=== PATIENT | male | born 1975 | race Caucasian/White ===

== ENCOUNTER 2016-06-22 13:20 | Emergency (ER) | payer OTHER ==
[2016-06-22 13:44] VITALS: TEMP 98.1; BMI 25.1
[2016-06-22] MEDS ORDERED: SODIUM CHLORIDE 1,000 ML IV STA (13:46)
--- NOTE | 2016-06-22 13:46 | PDOC ---
History of Present Illness - General History Source: Patient, EMS, Old Records Exam Limitations: No Limitations <Citlaly Leon - Last Filed: 06/22/16 16:43> - General History Source: Patient Exam Limitations: No Limitations - History of Present Illness Initial Comments: 06/22/16 14:00 The patient is a 41-year-old man with a significant past medical history of schizophrenia who presents to the emergency department via EMS for further evaluation of tremors. He state that this morning, he was having increasing generalized tremors,which prompted him to activate EMS. He is compliant with Haldol, [place], Panafen, Oxycarbon and states having a similar episode in the past, for which he was given Ativan and helped with his tremors. He denies the use of any recreational drug use. No other complaints. <Jodee Bansal - Last Filed: 06/22/16 16:48> - General Stated Complaint: CONVULSION Time Seen by Provider: 06/22/16 13:46 Past History - Psycho/Social/Smoking Cessation Hx Suicidal Ideation: No Smoking History: Never smoked Have you smoked in the past 12 months: No Information on smoking cessation initiated: No Drug/Substance Use Hx: No <Citlaly Leon - Last Filed: 06/22/16 16:43> <Jodee Bansal - Last Filed: 06/22/16 16:48> - Past Medical History Allergies/Adverse Reactions: Allergies Allergy/AdvReac Type Severity Reaction Status Date / Time No Known Allergies Allergy Verified 06/22/16 14:14 Home Medications: Ambulatory Orders Diphenhydramine [Benadryl -] 50 mg PO BID 06/22/16 Haloperidol [Haldol -] 20 mg PO BID 06/22/16 [place] Carbonate [Eskalith -] 600 mg PO BID 06/22/16 Lorazepam [Ativan] 2 mg PO DAILY 06/22/16 OXcarbazepine [Trileptal] 600 mg PO BID 06/22/16 Review of Systems - Review of Systems Able to Perform ROS?: Yes Comments:: 06/22/16 14:00 GENERAL/CONSTITUTIONAL: No fever or chills. No weakness. HEAD, EYES, EARS, NOSE AND THROAT: No change in vision. No ear pain or discharge. No sore throat. CARDIOVASCULAR: No chest pain or shortness of breath. RESPIRATORY: No cough, wheezing, or hemoptysis. GASTROINTESTINAL: No nausea, vomiting, diarrhea or constipation. GENITOURINARY: No dysuria, frequency, or change in urination. MUSCULOSKELETAL: No joint or muscle swelling or pain. No neck or back pain. SKIN: No rash NEUROLOGIC: Yes: Generalized body tremors.No headache, vertigo, loss of consciousness, or change in strength/sensation. ENDOCRINE: No increased thirst. No abnormal weight change. HEMATOLOGIC/LYMPHATIC: No anemia, easy bleeding, or history of blood clots. ALLERGIC/IMMUNOLOGIC: No hives or skin allergy. <Jodee Bansal - Last Filed: 06/22/16 16:48> *Physical Exam - Vital Signs Last Vital Signs Temp Pulse Resp BP Pulse Ox 98.1 F 110 H 18 157/96 100 06/22/16 13:25 06/22/16 13:25 06/22/16 13:25 06/22/16 13:25 06/22/16 13:25 <Citlaly Leon - Last Filed: 06/22/16 16:43> - Vital Signs Last Vital Signs Temp Pulse Resp BP Pulse Ox 98.1 F 110 H 18 157/96 100 06/22/16 13:25 06/22/16 13:25 06/22/16 13:25 06/22/16 13:25 06/22/16 13:25 - Physical Exam Comments: 06/22/16 14:00 GENERAL: Awake, alert, and fully oriented. Diaphoretic. HEAD: No signs of trauma EYES: PERRLA, EOMI, sclera anicteric, conjunctiva clear. Gaze fixed and upward. ENT: Auricles normal inspection, hearing grossly normal, nares patent, oropharynx clear without exudates. Moist mucosa NECK: Normal ROM, supple, no lymphadenopathy, JVD, or masses LUNGS: Breath sounds equal, clear to auscultation bilaterally. No wheezes, and no crackles HEART: Regular rate and rhythm, normal S1 and S2, no murmurs, rubs or gallops ABDOMEN: Soft, nontender, normoactive bowel sounds. No guarding, no rebound. No masses EXTREMITIES: Normal range of motion, no edema. No clubbing or cyanosis. No cords, erythema, or tenderness NEUROLOGICAL: Cranial nerves II through XII grossly intact. There is some voluntary shaking of the bilateral upper/lower extremities. Normal speech <Jodee Bansal - Last Filed: 06/22/16 16:48> ED Treatment Course - LABORATORY CBC & Chemistry Diagram: 06/22/16 14:08 06/22/16 14:08 <Andrew Leonfany - Last Filed: 06/22/16 16:43> - LABORATORY CBC & Chemistry Diagram: 06/22/16 14:08 06/22/16 14:08 <Jodee Banasl - Last Filed: 06/22/16 16:48> Medical Decision Making - Medical Decision Making 06/22/16 14:13 41-year-old male with history of schizoaffective disorder on antipsychotic medications presents the emergency Department with complaints of uncontrollable "shaking". The patient says that he was recently in the hospital and was prescribed Haldol was not prescribed any medication to counteract the EPS. The patient received Benadryl 50 mg IV in the ED with complete resolution of his symptoms. Differential diagnosis includes but is not limited to: Dystonia/ dystonic reaction, rhabdo my lysis, dehydration, electrolyte abnormality, toxic/ metabolic derangement. Plan: 1. Labs 2. IV fluids for hydration 3. Observe and reevaluate 4. Will discharge on Benadryl 50 mg every 6 hours for the next several days and will advised to follow-up with his psychiatrist on Thursday. Will also advised to return to the emergency department if symptoms persist, worsen, or new symptoms arise. 06/22/16 16:43 Addendum: The labs were reviewed and were noted in the EMR. His CK was elevated and therefore he was written for 2L IVF. The patient had complete resolution of his Sx with benadryl and then subsequently had times when he appeared to have voluntary shaking of various body parts. the patient continually requested ativan for his symptoms and he was given ativan 1mg IV. He repeatedly requested more ativan and to be "knocked out". When he was told no he asked to leave AMA (see AMA note). <EdwardCitlaly - Last Filed: 06/22/16 16:43> *DC/Admit/Observation/Transfer - Discharge Dispostion Admit: No - Attestations Physician Attestion: 06/22/16 14:15 I, Dr. Citlaly Leon, attest that the scribes documentation that appears above has been prepared under my direction and personally reviewed by me in its entirety. I confirmed that the note above accurately reflects all work, treatment, procedures, and medical decision-making performed by me. <Citlaly Leon - Last Filed: 06/22/16 16:43> - Attestations Scribe Attestion: 06/22/16 14:00 Documentation prepared by Jodee Bansal, acting as ophthalmic medical technician for Citlaly Leon MD. <Jodee Bansal - Last Filed: 06/22/16 16:48> Diagnosis at time of Disposition: Dystonic drug reaction - Discharge Dispostion Disposition: AGAINST MEDICAL ADVICE Condition at time of disposition: Stable
[2016-06-22 14:20] LABS: BASOPHIL 0.9 % (0-2.0); EOSINOPHIL 0.6 % (0-4.5); MCH 30.9 pg (25.7-33.7); MCHC 33.5 g/dl (32.0-35.9); MEAN CELL VOLUME 92.2 fl (80-96); NEUTROPHILS 79.4 % (42.8-82.8); PLATELET COUNT 292 K/MM3 (134-434); RDW 13.5 % (11.9-15.9); WHITE BLOOD COUNT 12.8 K/mm3 (4.0-10.0)
[2016-06-22] MEDS ORDERED: SODIUM CHLORIDE 2,000 ML IV STA (14:24)
[2016-06-22 14:42] LABS: ALBUMIN 4.4 g/dl (3.4-5.0); ANION GAP 15 (8-16); BILIRUBIN,TOTAL 0.2 mg/dL (0.2-1.0); CALCIUM 9.3 mg/dL (8.5-10.1); CO2 25 mmol/L (21-32); GLUCOSE,RANDOM 103 mg/dL (74-106); SGOT/AST 27 U/L (15-37); SGPT/ALT 36 U/L (12-78); TOT PROT 7.3 g/dl (6.4-8.2)
[2016-06-22 14:45] LABS: ALK PHOS 114 U/L (45-117); TROPONIN I < 0.02 ng/ml (0.00-0.05)
[2016-06-22 15:38] LABS: URINE APPEARANCE CLEAR; URINE BILIRUBIN NEGATIVE (NEGATIVE); URINE COLOR STRAW; URINE GLUCOSE (UA) NEGATIVE (NEGATIVE); URINE KETONE NEGATIVE (NEGATIVE); URINE LEUK ESTERASE NEGATIVE (NEGATIVE); URINE NITRITE NEGATIVE (NEGATIVE); URINE PROTEIN NEGATIVE (NEGATIVE); URINE UROBILINOGEN NEGATIVE E.U./dl (0.2-1.0)
[2016-06-22 15:42] LABS: URINE BLOOD 1+ (NEGATIVE)
[2016-06-22 15:44] LABS: URINE RBC 4 /hpf (0-3); URINE WBC <1 /hpf (3-5)
[2016-06-22 16:00] VITALS: PULSE 88
[2016-06-22] MEDS ORDERED: LORAZEPAM CARPU-JECT 2 MG/ML DISP.SYRIN IVPUSH ONE (16:01)
[2016-06-22 16:02] VITALS: BP 155/87
[2016-06-22] MEDS ORDERED: LORAZEPAM CARPU-JECT 2 MG/ML DISP.SYRIN ONE (16:03)
--- NOTE | 2016-06-24 17:17 | EKG ---
Test Reason : Blood Pressure : / mmHG Vent. Rate : 119 BPM Atrial Rate : 119 BPM P-R Int : 112 ms QRS Dur : 078 ms QT Int : 330 ms P-R-T Axes : 046 076 053 degrees QTc Int : 464 ms SINUS TACHYCARDIA BASELINE ARTIFACT NO PREVIOUS ECGS AVAILABLE Confirmed by CAROL BARRON MD ([id number]) on 06/24/2016 5:17:34 PM Referred By: Confirmed By:CAROL BARRON MD
== END 2016-06-22 16:38 | disposition left against medical advice (07) ==
LOC: JER 13:20
PROC: 3E033NZ Introduction of Analgesics, Hypnotics, Sedatives into Peripheral Vein, Percutaneous Approach (ICD-10-PCS; principal; 2016-06-22)
PROC: 3E033GC Introduction of Other Therapeutic Substance into Peripheral Vein, Percutaneous Approach (ICD-10-PCS; 2016-06-22)
DX: G24.09 Other drug induced dystonia (principal); T50.995A Adverse effect of other drugs, medicaments and biological substances, initial encounter
CPT/HCPCS: 36415; 80053; 80178; 80307; 81003; 81015; 82550; 82553; 84484; 85025; 93005; 93010; 96374; 96375; 99284-25